=== PATIENT | male | born 1950 | race African-American/Black ===

== ENCOUNTER 2022-04-12 09:40 | Inpatient (IN) | payer MEDICARE, MEDICAID ==
[~2022-04-12] VITALS: Ht 165.1 cm; Wt 71.7 kg
[2022-04-12 10:13] LABS: BASOPHILS % 0.3 % (0.0-2.0); HEMOGLOBIN. 15.4 g/dL (14.0-18.0); LYMPHOCYTES % 15.3 % (20.0-50.0); MEAN CORPUSCULAR HEMOGLOBIN 27.9 pg (28.0-32.0); MEAN CORPUSCULAR VOLUME 81.5 fL (80.0-94.0); MEAN PLATELET VOLUME 7.5 fl (7.4-10.4); MONOCYTES % 11.6 % (2.0-8.0); NEUTROPHILS % 71.8 % (40.0-76.0); PLATELET 214 x1000/uL (130-400); RED BLOOD CELL COUNT 5.52 mill/uL (4.7-6.1); RED CELL DISTRIBUTION WIDTH 16.1 % (11.6-14.6)
[2022-04-12 10:23] LABS: CHLORIDE 101 mEq/L (98-107); INR 1.1; PROTHROMBIN TIME 11.3 sec (9.6-11.0)
[2022-04-12 10:34] LABS: ETHANOL BLOOD < 10 mg/dL
[2022-04-12] MEDS ORDERED: ALBUTEROL (0.083%) 2.5MG/3ML NEB HHN NR (11:14)
[2022-04-12] MEDS ORDERED: METHYLPREDNISOLONE SOD SUCC 125 MG/2 ML VIAL IV NR (11:14)
[2022-04-12] MEDS ORDERED: IPRATROPIUM BROMIDE (0.02%) 0.5MG/2.5ML NEB HHN NR (11:14)
[2022-04-12 11:44] LABS: CLARITY URINE CLEAR (CLEAR); COLOR URINE DARK YELLOW (YELLOW); KETONES URINE TRACE (NEGATIVE); LEUKOCYTE ESTERASE URINE TRACE (NEGATIVE); NITRITE URINE NEGATIVE (NEGATIVE); OCCULT BLOOD URINE NEGATIVE (NEGATIVE); PH URINE 5.5 (4.5-8.0); PROTEIN URINE TRACE (NEGATIVE); SPECIFIC GRAVITY URINE 1.024 (1.005-1.030)
[2022-04-12 12:16] LABS: *AMPHETAMINES SCREEN URINE NEGATIVE (NEGATIVE); *BARBITURATES SCREEN URINE NEGATIVE (NEGATIVE); *BENZODIAZEPINES SCREEN URINE NEGATIVE (NEGATIVE); *COCAINE SCREEN URINE NEGATIVE (NEGATIVE); CANNABINOID URINE SCREEN NEGATIVE (NEGATIVE); METHADONE URINE SCREEN NEGATIVE (NEGATIVE); OPIATES URINE SCREEN NEGATIVE (NEGATIVE); PHENCYCLIDINE URINE SCREEN NEGATIVE (NEGATIVE)
[2022-04-12 18:00] VITALS: BP 118/67
[2022-04-12 20:00] VITALS: BP 110/78
[2022-04-12 20:29] VITALS: BP 110/78
[2022-04-12] MEDS: METHYLPREDNISOLONE SOD SUCC 40 MG/ML VIAL IV SCH (21:14)
[2022-04-12] MEDS: FAMOTIDINE 20MG TABLET PO SCH (21:14)
[2022-04-12] MEDS: IPRATROPIUM/ALBUTEROL 0.5-3(2.5)MG/3ML NEB HHN SCH (21:53)
[2022-04-12] MEDS ORDERED: GUAI118S13 PO (23:25)
[2022-04-12] MEDS ORDERED: EZETIMIBE (23:25)
[2022-04-12] MEDS ORDERED: ROSU40TA (23:25)
[2022-04-12] MEDS ORDERED: TAMSULOSIN (23:25)
[2022-04-12] MEDS ORDERED: ALBU6.7H9 (23:25)
[2022-04-12] MEDS ORDERED: AMLO5TAB88 PO (23:25)
[2022-04-13 00:30] VITALS: BP 104/59
[2022-04-13] MEDS: IPRATROPIUM/ALBUTEROL 0.5-3(2.5)MG/3ML NEB HHN SCH ×2 (02:21→21:44)
[2022-04-13 04:00] VITALS: BP 109/57
[2022-04-13] MEDS: METHYLPREDNISOLONE SOD SUCC 40 MG/ML VIAL IV SCH ×3 (04:02→20:22)
[2022-04-13 08:00] VITALS: BP 121/73
[2022-04-13] MEDS: FAMOTIDINE 20MG TABLET PO SCH ×2 (08:46→20:22)
[2022-04-13 12:00] VITALS: BP 118/79
[2022-04-13] MEDS ORDERED: ALBUTEROL (0.083%) 2.5MG/3ML NEB HHN NR (13:30)
[2022-04-13 16:00] VITALS: BP 122/77
[2022-04-13 20:13] VITALS: BP 122/79
[2022-04-13] MEDS ORDERED: IOHEXOL-300 100 ML BOTTLE ONE (21:17)
[2022-04-13 22:40] LABS: BG BASE EXCESS 1.7 mmol/L (-2.0-2.0); BG CARBOXYHEMOGLOBIN 0.8 % (0.5-1.5); BG DEOXYHEMOGLOBIN 10.8 % (0.0-5.0); BG FRACTION INSPIRED OXYGEN 21; BG HCO3 ACT 26.3 mmol/L (22.0-26.0); BG METHEMOGLOBIN 0.3 % (0.0-1.5); BG OXYGEN SATURATION 89.1 % (92.0-98.5); BG OXYHEMOGLOBIN 88.1 % (94.0-97.0); BG PCO2 41.3 mmHg (35.0-45.0); BG PH 7.422 (7.350-7.450); BG PO2 60.4 mmHg (75.0-100.0); BG SAMPLE SITE RIGHT RADIAL; BG TOTAL HEMOGLOBIN 14.5 g/dL (12.0-18.0); BG VENT MODE ROOM AIR
[2022-04-14 00:33] VITALS: BP 99/57
[2022-04-14] MEDS: IPRATROPIUM/ALBUTEROL 0.5-3(2.5)MG/3ML NEB HHN SCH ×6 (02:21→20:49)
[2022-04-14 04:00] VITALS: BP 107/65
[2022-04-14 08:00] VITALS: BP 100/57
[2022-04-14] MEDS: FAMOTIDINE 20MG TABLET PO SCH ×2 (08:53→20:12)
[2022-04-14 12:00] VITALS: BP 100/53
[2022-04-14] MEDS: METHYLPREDNISOLONE SOD SUCC 40 MG/ML VIAL IV SCH ×2 (13:15→20:12)
[2022-04-14] MEDS ORDERED: P20 MT (15:46)
[2022-04-14] MEDS ORDERED: FLUT1DIS3 INH (15:46)
[2022-04-14] MEDS ORDERED: ALBU18HF2 IH (15:46)
[2022-04-14 16:00] VITALS: BP 100/53
[2022-04-14 20:00] VITALS: BP 112/58
[2022-04-15] VITALS: BP 104/55
[2022-04-15] MEDS: IPRATROPIUM/ALBUTEROL 0.5-3(2.5)MG/3ML NEB HHN SCH ×5 (00:28→20:07)
[2022-04-15 04:00] VITALS: BP 115/61
[2022-04-15] MEDS: METHYLPREDNISOLONE SOD SUCC 40 MG/ML VIAL IV SCH ×3 (04:20→21:30)
[2022-04-15 08:00] VITALS: BP 106/61
[2022-04-15] MEDS: FAMOTIDINE 20MG TABLET PO SCH ×2 (09:00→21:29)
[2022-04-15 12:00] VITALS: BP 106/61
[2022-04-15 16:00] VITALS: BP 96/60
[2022-04-15 20:00] VITALS: BP 110/69
[2022-04-16] VITALS: BP 105/66
[2022-04-16] MEDS: IPRATROPIUM/ALBUTEROL 0.5-3(2.5)MG/3ML NEB HHN SCH ×6 (01:01→21:13)
[2022-04-16 04:00] VITALS: BP 109/59
[2022-04-16] MEDS: METHYLPREDNISOLONE SOD SUCC 40 MG/ML VIAL IV SCH ×3 (04:11→21:13)
[2022-04-16 08:00] VITALS: BP 119/78
[2022-04-16] MEDS: FAMOTIDINE 20MG TABLET PO SCH ×2 (08:13→21:13)
[2022-04-16 12:00] VITALS: BP 125/68
[2022-04-16 16:00] VITALS: BP 125/62
[2022-04-16 18:27] LABS: HEMATOCRIT. 42.4 % (42.0-52.0); HEMOGLOBIN. 14.2 g/dL (14.0-18.0); MEAN CORPUSCULAR HEMOGLOBIN 27.2 pg (28.0-32.0); MEAN CORPUSCULAR VOLUME 81.2 fL (80.0-94.0); MEAN PLATELET VOLUME 7.5 fl (7.4-10.4); PLATELET 243 x1000/uL (130-400); RED BLOOD CELL COUNT 5.21 mill/uL (4.7-6.1); RED CELL DISTRIBUTION WIDTH 15.6 % (11.6-14.6)
[2022-04-16 18:53] LABS: CHLORIDE 101 mEq/L (98-107)
[2022-04-16 20:39] VITALS: BP 130/72
[2022-04-16 20:56] LABS: PLATELET ESTIMATE NORMAL
[2022-04-17] VITALS: BP 129/75
[2022-04-17] MEDS: IPRATROPIUM/ALBUTEROL 0.5-3(2.5)MG/3ML NEB HHN SCH ×6 (00:59→20:29)
[2022-04-17] MEDS: METHYLPREDNISOLONE SOD SUCC 40 MG/ML VIAL IV SCH ×3 (03:45→20:59)
[2022-04-17 04:00] VITALS: BP 133/63
[2022-04-17 07:27] LABS: HEMATOCRIT. 41.2 % (42.0-52.0); HEMOGLOBIN. 13.5 g/dL (14.0-18.0); MEAN CORPUSCULAR HEMOGLOBIN 26.9 pg (28.0-32.0); MEAN CORPUSCULAR VOLUME 82.3 fL (80.0-94.0); MEAN PLATELET VOLUME 7.4 fl (7.4-10.4); PLATELET 245 x1000/uL (130-400); RED CELL DISTRIBUTION WIDTH 15.5 % (11.6-14.6)
[2022-04-17 08:00] VITALS: BP 117/65
[2022-04-17] MEDS: FAMOTIDINE 20MG TABLET PO SCH ×2 (08:01→20:59)
[2022-04-17 08:41] LABS: CHLORIDE 100 mEq/L (98-107)
[2022-04-17 11:06] LABS: PLATELET ESTIMATE NORMAL
[2022-04-17 12:00] VITALS: BP 120/60
[2022-04-17 16:00] VITALS: BP 119/63
[2022-04-17 20:00] VITALS: BP 123/55
[2022-04-18] VITALS (7 sets, daily range): BP systolic 107–137; BP diastolic 61–77
[2022-04-18] MEDS: IPRATROPIUM/ALBUTEROL 0.5-3(2.5)MG/3ML NEB HHN SCH ×7 (00:42→20:49)
[2022-04-18] MEDS: METHYLPREDNISOLONE SOD SUCC 40 MG/ML VIAL IV SCH ×3 (04:22→20:12)
[2022-04-18] MEDS: FAMOTIDINE 20MG TABLET PO SCH ×2 (08:48→20:12)
[2022-04-19] VITALS: BP 122/68
[2022-04-19] MEDS: IPRATROPIUM/ALBUTEROL 0.5-3(2.5)MG/3ML NEB HHN SCH ×5 (00:28→21:15)
[2022-04-19 04:00] VITALS: BP 143/65
[2022-04-19] MEDS: METHYLPREDNISOLONE SOD SUCC 40 MG/ML VIAL IV SCH ×2 (04:45→16:00)
[2022-04-19 08:00] VITALS: BP 112/72
[2022-04-19] MEDS: FAMOTIDINE 20MG TABLET PO SCH ×2 (08:35→20:02)
[2022-04-19 12:00] VITALS: BP 131/46
[2022-04-19 16:00] VITALS: BP 128/54
[2022-04-19 20:00] VITALS: BP 117/66
[2022-04-20] VITALS (7 sets, daily range): BP systolic 109–124; BP diastolic 49–78
[2022-04-20] MEDS: IPRATROPIUM/ALBUTEROL 0.5-3(2.5)MG/3ML NEB HHN SCH ×5 (00:50→16:39)
[2022-04-20] MEDS: METHYLPREDNISOLONE SOD SUCC 40 MG/ML VIAL IV SCH ×2 (04:09→16:00)
[2022-04-20] MEDS: FAMOTIDINE 20MG TABLET PO SCH (09:04)
== END 2022-04-20 20:40 | disposition home or self-care (01) | DRG 189 ==
LOC: ER 09:40 → EDBEDREQSVC 11:17 → EDBEDREQ 11:17 → EDBEDREQTM 11:17 → 7WST 12:42 → EDBEDREQ 13:02 → EDBEDREQTM 13:02 → ENRESERV 16:30
PROVIDERS: ADMIT Internal Medicine; ATTEND Internal Medicine
DX: J96.01 Acute respiratory failure with hypoxia (principal); E44.1 Mild protein-calorie malnutrition; E87.1 Hypo-osmolality and hyponatremia; C34.11 Malignant neoplasm of upper lobe, right bronchus or lung; J43.9 Emphysema, unspecified; E78.00 Pure hypercholesterolemia, unspecified; E78.5 Hyperlipidemia, unspecified; Z20.822 Contact with and (suspected) exposure to COVID-19; I10 Essential (primary) hypertension; Z79.899 Other long term (current) drug therapy; Z68.26 Body mass index [BMI] 26.0-26.9, adult
CPT/HCPCS: 36415; 36600; 71045; 71260; 80048; 80053; 80305; 80320; 81003; 82375; 82805; 83605; 83880; 84145; 84484; 85025; 87426; 93005; 94618; 94640; 99285; C9803; J2920; J2930; Q9967; G0480